=== PATIENT | female | born 1960 | race Caucasian/White ===

== ENCOUNTER 2021-01-12 18:41 | Emergency (ER) | payer OTHER ==
[~2021-01-12 18:41] MED LIST: BUSPAR 5MG TABLE5 MG PO; COLACE 100MG C100 MG PO; ESTRADIOL2 MG PO; FISH OIL 1,0001 EAC4 PO; IMITREX100 MG PO; INDERAL LA60 MG PO; LIORESAL TAB 1010 MG PO; LYRICA100 MG PO; MOBIC15 MG PO; NORCO 5-325 TA1 EACH PO; NYSTATIN1 EAC1 PO; PHENERGAN 25 MG25 M1 PO; PRILOSEC OTC20 MG PO; PROTONIX40 MG PO; REQUIP2 MG PO; SIMVASTATIN40 MG PO; ZOLOFT50 MG PO; ZYRTEC10 M3 PO
[2021-01-12 19:50] LABS: HEMOGLOBIN 13.9 gm/dl (12.3-15.3); RED BLOOD COUNT 4.33 M/UL (4.00-5.10); WHITE BLOOD COUNT 10.2 K/UL (4.5-11.0)
[2021-01-12 20:15] LABS: BUN/CREATININE RATIO 35 (0-10)
== END 2021-01-12 21:30 | disposition home or self-care (01) ==
LOC: ER1 18:41
PROVIDERS: Family Medicine
DX: R07.89 Other chest pain (principal); E11.9 Type 2 diabetes mellitus without complications; Z86.73 Personal history of transient ischemic attack (TIA), and cerebral infarction without residual deficits; Z79.82 Long term (current) use of aspirin; Z79.02 Long term (current) use of antithrombotics/antiplatelets; Z88.0 Allergy status to penicillin; Z88.1 Allergy status to other antibiotic agents
CPT/HCPCS: 71045; 80048; 82550; 82553; 83874; 84484; 85025; 85379; 93005; 96374; 99285; J1642